=== PATIENT | male | born 1985 | race African-American/Black ===

== ENCOUNTER 2021-06-20 23:27 | Inpatient (IN) | payer BC, SELFPAY ==
[2021-06-20] MEDS ORDERED: Furosemide 40 MG/4 ML VIAL ONE (23:49)
[2021-06-21 00:03] LABS: #Basophils 0.1 10x3/uL (0.0-0.2); #Eosinphils 0.1 10x3/uL (0.0-0.5); #Monocytes 0.9 10x3/uL (0.0-1.1); #Neutrophils 6.5 10x3/uL (1.5-8.4); %Basophils 0.7 % (0.0-2.0); %Eosinophils 0.7 % (0.0-6.0); %Lymphocytes 20.1 % (18.0-47.0); %Monocytes 9.1 % (0.0-10.0); Hemoglobin 14.1 g/dL (13.5-17.5); Mean Corpuscular HGB CONC 30.2 g/dL (32.0-36.0); Mean Corpuscular Hemoglobin 26.3 pg (27.0-33.0); Mean Corpuscular Volume 87.1 fl (81.2-95.1); Mean Platelet Volume 11.7 fl (7.4-10.4); Platelet Count 200 10x3/uL (150-450); RBC Distribution Width 15.5 % (11.5-14.5); Red Blood Cell (RBC) Count 5.36 10x6/uL (4.32-5.72); White Blood Cell (WBC) Count 9.4 10x3/uL (3.5-10.5)
[2021-06-21 00:15] LABS: ALT (SGPT) 18 U/L (8-55); AST (SGOT) 18 U/L (5-34); Albumin 3.5 g/dL (3.5-5.0); Alkaline Phosphatase 85 U/L (40-110); Anion Gap 15 mmol/L (10-20); BUN (Urea Nitrogen) 29 mg/dL (8.9-20.6); Bilirubin, Total 0.4 mg/dL (0.2-1.2); Calc. Creatinine Clearance 0 mL/min (70-130); Calcium 7.8 mg/dL (7.8-10.44); Carbon Dioxide 35 mmol/L (22-29); Chloride 98 mmol/L (98-107); Globulin 3.8 g/dL (2.4-3.5); Glucose 138 mg/dL (70-105); Potassium 3.9 mmol/L (3.5-5.1); Protein, Total 7.3 g/dL (6.0-8.3); Sodium 144 mmol/L (136-145)
[2021-06-21 00:31] LABS: CKMB 1.4 ng/mL (0-6.6)
[2021-06-21] MEDS ORDERED: HumaLOG 300 UNITS/3 ML VIAL SC PRN (02:19)
[2021-06-21] MEDS ORDERED: Senokot S 8.6-50 MG TAB PO PRN (02:19)
[2021-06-21] MEDS ORDERED: Dextrose 5% in Water 1,000 ML IV PRN (02:19)
[2021-06-21] MEDS ORDERED: Acetaminophen 325 MG TAB PO PRN (02:19)
[2021-06-21] MEDS ORDERED: Dextrose 50% Abboject 50 ML SYRINGE SLOW IVP PRN (02:19)
[2021-06-21] MEDS ORDERED: Guaifenesin DM 100-10/5 ML UDCUP PO PRN (02:19)
[2021-06-21] MEDS ORDERED: Calcium Carbonate 500 MG ChewTAB PO PRN (02:19)
[2021-06-21 03:25] VITALS: BMI 62.7
[2021-06-21 04:07] LABS: SARS-CoV-2 NAA Rapid Test Not Detected (NotDetected)
[2021-06-21 05:18] LABS: Anion Gap 14 mmol/L (10-20); BUN (Urea Nitrogen) 26 mg/dL (8.9-20.6); Calc. Creatinine Clearance 131 mL/min (70-130); Carbon Dioxide 32 mmol/L (22-29); Chloride 98 mmol/L (98-107); Glucose 131 mg/dL (70-105); Magnesium 1.2 mg/dL (1.6-2.6); Potassium 3.8 mmol/L (3.5-5.1); Sodium 140 mmol/L (136-145)
[2021-06-21] MEDS: Furosemide 40 MG/4 ML VIAL SLOW IVP SCH ×2 (06:05→13:57)
[2021-06-21 08:56] LABS: Troponin I 0.028 ng/mL (< 0.028)
[2021-06-21] MEDS ORDERED: Enoxaparin Sodium 30 MG/0.3 ML SYRINGE SC SCH (09:00)
[2021-06-21] MEDS: hydrALAZINE 25 MG TAB PO SCH (09:18)
[2021-06-21] MEDS: glyBURIDE 5 MG TAB PO SCH ×2 (09:18→17:26)
[2021-06-21] MEDS: Enoxaparin Sodium 40 MG/0.4 ML SYRINGE SC SCH ×2 (09:18→20:33)
[2021-06-21] MEDS: Carvedilol 25 MG TAB PO SCH ×2 (09:18→17:10)
[2021-06-21] MEDS: Aspirin Chewable 81 MG TAB PO SCH (09:18)
[2021-06-21 09:36] LABS: Cardiac Risk 3.3 (Less than 4.5); Cholesterol 97 mg/dl (< 200 Desired); HDL Cholesterol 29 mg/dL (>60 Neg Risk); LDL Cholesterol, Calculated 58 mg/dL; Magnesium 1.2 mg/dL (1.6-2.6); Phosphorus 4.9 mg/dL (2.3-4.7); Triglycerides 50 mg/dL (Less than 150)
[2021-06-21 11:47] LABS: Bilirubin Neg (Negative); Blood, Urine Negative (Negative); Clarity Clear (Clear); Glucose, Urine (Dipstick) Normal (Negative); Ketone, Urine Negative (Negative); Leukocyte Negative (Negative); Nitrite Negative (Negative); Protein, Urine (Dipstick) 100 mg/dl (Neg-Trace); Specific Gravity, Urine 1.015 (1.002-1.036); Urobilinogen Normal mg/dL (Less than 2)
[2021-06-21 12:12] LABS: Bacteria/HPF None Seen HPF (None Seen); RBC/HPF 0-3 HPF (0-3); Squamous Epithelial 0-3 HPF (0-3); WBC/HPF 0-3 HPF (0-3)
[2021-06-21 14:25] LABS: Hemoglobin A1c 7.6 % (4.0-6.0)
[2021-06-21] MEDS: Sevelamer Carbonate 800 MG TAB PO SCH (17:10)
[2021-06-21] MEDS ORDERED: Atorvastatin Calcium 40 MG TAB PO SCH (21:00)
[2021-06-21] MEDS ORDERED: Enoxaparin Sodium 40 MG/0.4 ML SYRINGE SC SCH (21:00)
[2021-06-22] MEDS: hydrALAZINE 25 MG TAB PO SCH ×2 (01:35→07:54)
[2021-06-22 05:20] LABS: Anion Gap 14 mmol/L (10-20); BUN (Urea Nitrogen) 29 mg/dL (8.9-20.6); Calc. Creatinine Clearance 126 mL/min (70-130); Calcium 7.9 mg/dL (7.8-10.44); Carbon Dioxide 35 mmol/L (22-29); Chloride 99 mmol/L (98-107); Glucose 135 mg/dL (70-105); Potassium 4.3 mmol/L (3.5-5.1); Sodium 144 mmol/L (136-145)
[2021-06-22 05:38] LABS: Troponin I 0.035 ng/mL (< 0.028)
[2021-06-22] MEDS: Furosemide 40 MG/4 ML VIAL SLOW IVP SCH ×2 (06:11→13:03)
[2021-06-22] MEDS: Sevelamer Carbonate 800 MG TAB PO SCH ×3 (07:54→17:42)
[2021-06-22] MEDS: Aspirin Chewable 81 MG TAB PO SCH (07:54)
[2021-06-22] MEDS: Carvedilol 25 MG TAB PO SCH ×2 (07:54→17:42)
[2021-06-22] MEDS: Enoxaparin Sodium 40 MG/0.4 ML SYRINGE SC SCH (07:55)
[2021-06-22 17:44] VITALS: BP 133/88; TEMP 98.1
[2021-06-22 20:43] LABS: Urine Total Volume 4200 mL (800-1800)
[2021-06-22 21:27] LABS: Protein - 24 Hr 9030 mg/24 hr (Less than 300); Protein, Urine 215 mg/dL (1-14)
== END 2021-06-22 18:15 | disposition home or self-care (01) | DRG 291 ==
LOC: CSHERS 23:27 → CSHTELE 06-21 03:12
PROVIDERS: ADMIT Student in an Organized Health Care Education/Training Program; ATTEND Family Medicine
DX: I13.0 Hypertensive heart and chronic kidney disease with heart failure and stage 1 through stage 4 chronic kidney disease, or unspecified chronic kidney disease (principal); I50.43 Acute on chronic combined systolic (congestive) and diastolic (congestive) heart failure; J96.21 Acute and chronic respiratory failure with hypoxia; J96.22 Acute and chronic respiratory failure with hypercapnia; E66.2 Morbid (severe) obesity with alveolar hypoventilation; N17.9 Acute kidney failure, unspecified; Z68.44 Body mass index [BMI] 60.0-69.9, adult; Z20.822 Contact with and (suspected) exposure to COVID-19; I16.0 Hypertensive urgency; I42.0 Dilated cardiomyopathy; I34.0 Nonrheumatic mitral (valve) insufficiency; I27.81 Cor pulmonale (chronic); G47.33 Obstructive sleep apnea (adult) (pediatric); I50.810 Right heart failure, unspecified; I89.0 Lymphedema, not elsewhere classified; N18.30 Chronic kidney disease, stage 3 unspecified; E11.22 Type 2 diabetes mellitus with diabetic chronic kidney disease; E78.5 Hyperlipidemia, unspecified; E83.39 Other disorders of phosphorus metabolism; Z79.899 Other long term (current) drug therapy; Z98.890 Other specified postprocedural states
CPT/HCPCS: 36415; 36416; 71045; 76770; 80048; 80053; 80061; 81001; 82553; 83036; 83735; 83880; 84100; 84156; 84443; 84484; 85025; 93005; 93306; 94660; 94760; 97139; J1650; J1940; U0002